=== PATIENT | female | born 1965 ===

== ENCOUNTER 2016-09-04 09:17 | Emergency (ER) | payer MEDICAID ==
[2016-09-04 09:17] VITALS: BMI 36.7
--- NOTE | 2016-09-04 11:09 | RAD ---
PROCEDURE: Radiographs of the Left Shoulder HISTORY: Pain COMPARISON: No prior. FINDINGS: BONES: Bone alignment and mineralization are normal. There is no acute fracture or bone destruction. JOINTS: Normal. Glenohumeral and acromioclavicular joints preserved. No osteoarthritis. SOFT TISSUES: There are discrete multifocal calcifications lateral to the humeral head. OTHER FINDINGS: None. IMPRESSION: Multifocal calcifications lateral to the humeral head could represent calcific tendinitis. No acute fracture or significant degenerative osteoarthrosis.
--- NOTE | 2016-09-04 11:34 | ED PDOC ---
Arrival/HPI - General Chief Complaint: Upper Extremity Problem/Injury Time Seen by Provider: 09/04/16 09:57 Historian: Patient - History of Present Illness Narrative History of Present Illness (Text): 09/04/16 11:52 A 51 year old female presents to the emergency department complaining of left sided shoulder pain for the last 3 weeks. Patient reports no trauma or injury. Patient notes pain is worse with abduction. Patient reports pain is positional. Patient denies chest pain, shortness of breath, dyspnea on exertion or any other complaints at this time. Time/Duration: Other (3 weeks) Symptom Onset: Sudden Symptom Course: Unchanged Activities at Onset: Rest Context: Home Past Medical History - Provider Review Nursing Documentation Reviewed: Yes - Infectious Disease Hx of Infectious Diseases: None - Tetanus Immunization Tetanus Immunization: Unknown - Past Medical History Past Medical History: No Previous - Cardiac Hx Cardiac Disorders: No - Pulmonary Hx Respiratory Disorders: No - Neurological Hx Neurological Disorder: No - HEENT Hx HEENT Disorder: Yes Other/Comment: glasses - Renal Hx Renal Disorder: No - Endocrine/Metabolic Hx Endocrine Disorders: Yes Other/Comment: PRE DIABETIC. - Hematological/Oncological Hx Blood Disorders: No - Integumentary Hx Dermatological Disorder: No - Musculoskeletal/Rheumatological Hx Musculoskeletal Disorders: No - Gastrointestinal Hx Gastrointestinal Disorders: No - Genitourinary/Gynecological Hx Genitourinary Disorders: No - Psychiatric Hx Psychophysiologic Disorder: No Hx Depression: No Hx Emotional Abuse: No Hx Physical Abuse: No Hx Substance Use: No - Surgical History Hx Section: Yes - Anesthesia Hx Anesthesia: Yes Hx Anesthesia Reactions: No - Suicidal Assessment Feels Threatened In Home Enviroment: No Family/Social History - Physician Review Nursing Documentation Reviewed: Yes Family/Social History: No Known Family HX Smoking Status: Never Smoked Hx Alcohol Use: No Hx Substance Use: No Allergies/Home Meds Allergies/Adverse Reactions: Allergies No Known Allergies Allergy (Verified 09/04/16 09:52) Home Medications: Home Meds Medication Instructions Recorded Confirmed Ascorbic Acid [Vitamin C] 1 tab PO DAILY 09/04/16 09/04/16 Ergocalciferol (Vitamin D2) 1 tab PO DAILY 09/04/16 09/04/16 [Vitamin D] Physical Exam - Physical Exam Narrative Physical Exam (Text): 09/04/16 11:41- Review of Systems Constitutional: Normal. absent: Fatigue, Weight Change, Fevers Eyes: Normal ENT: Normal Respiratory: Normal absent: SOB, Cough, Sputum Cardiovascular: Normal absent: Chest pain, Palpitations, Syncope, TELLES Gastrointestinal: Normal absent: Abdominal pain, Diarrhea, Nausea, Vomiting Genitourinary: Normal. absent: Dysuria, Frequency, Hematuria Musculoskeletal: Present: left shoulder pain absent: Back Pain, Neck Pain Skin: Normal Neurological: Normal absent: Focal Weakness Endocrine: Normal Hemo/Lymphatic: Normal Psychiatric: Normal - Physical exam Patient appears age appropriate, speaking full sentences without difficulty - Systems Exam Head: Present: Atraumatic, Normocephalic Pupils: Present: PERRL Extraocular Muscles: Present: EOMI Conjunctiva: Present: Normal Mouth: Present: Moist Mucous Membranes Neck: Present: Normal Range of Motion. No: MIDLINE TENDERNESS, Paraspinal Tenderness Respiratory/Chest: Present: Clear to Auscultation, Good Air Exchange. No: Respiratory Distress, Accessory Muscle Use, Tachypnic Cardiovascular: Present: Regular Rate and Rhythm, Normal S1, S2, Peripheral Pulses Present. No: Murmurs Abdomen: Present: Normal Bowel Sounds, No: Tenderness, Peritoneal Signs, Rebound, Guarding, Distention Back: Present: Normal Inspection. No: Midline Tenderness, Paraspinal Tenderness Upper Extremity: Present: left lateral shoulder tenderness, pain quality reproduced with palpation and ROM testing; elbow, forearm and wrist unremarkable ; distal neurovascular fully intact; 5/5 strength No: Cyanosis, Edema Lower Extremity: Present: Normal Inspection. No: Edema Neurological: Present: GCS=15, Speech Normal, cranial nerves II through XII fully intact with no cerebellar abnormality, neuro-sensory fully intact. No focal neurological deficits. Skin: Present: Warm, Dry, Normal Color. No: Rashes Lymphatic: Present: OX3, NI, NC Psychiatric: Present: Alert, Oriented x 3, Normal Insight, Normal Concentration Vital Signs Reviewed: Yes Vital Signs Temp Pulse Resp BP Pulse Ox 09/04/16 12:15 98.1 F 63 16 116/63 99 Temperature: Afebrile Blood Pressure: Normal Pulse: Regular Respiratory Rate: Normal Appearance: Positive for: Well-Appearing, Non-Toxic, Comfortable Pain Distress: None Mental Status: Positive for: Alert and Oriented X 3 Medical Decision Making ED Course and Treatment: 09/04/16 11:38 Impression: A 51 year old female with left sided shoulder pain. On physical exam, left lateral shoulder tenderness, pain quality reproduced with palpation and ROM testing; elbow, forearm and wrist unremarkable; distal neurovascular fully intact; 5/5 strength. Differential Diagnosis included but are not limited to: calcific tendonitis vs. bursitis Plan: -- Xray shoulder -- Toradol -- Arm Sling -- Reassess and disposition Prior Visits: Notes and results from previous visits were reviewed. Patient last reported to the emergency department on 11/29/13 for evaluation of allergic reaction with urticaria to arms, chest and legs. Progress Notes: shoulder xray- Shoulder xray shows calcified lesions, interpreted by me. Patient reports relief after given Toradol. Sling applied, instructed patient to follow up with orthopedic. Pt states she understands to return to the ER right away for new or worsening symptoms or for inability to f/u with PMD or specialist as instructed. Patient states that she fully agrees with and understands discharge instructions. States that she agrees with the plan and disposition. Verbalized and repeated discharge instructions and plan. I have given the patient opportunity to ask any additional questions. - RAD Interpretation Radiology Orders: 09/04/16 10:02 SHOULDER LEFT [RAD] Stat - Medication Orders Current Medication Orders: Discontinued Medications Ketorolac Tromethamine (Toradol) 30 mg IM STAT STA Stop: 09/04/16 10:03 Last Admin: 09/04/16 10:26 Dose: 30 mg - Scribe Statement The provider has reviewed the documentation as recorded by the Kelsy Esteban Provider Scribe Attestation: All medical record entries made by the Scribe were at my direction and personally dictated by me. I have reviewed the chart and agree that the record accurately reflects my personal performance of the history, physical exam, medical decision making, and the department course for this patient. I have also personally directed, reviewed, and agree with the discharge instructions and disposition. Disposition/Present on Arrival - Present on Arrival Any Indicators Present on Arrival: No History of DVT/PE: No History of Uncontrolled Diabetes: No Urinary Catheter: No History of Decub. Ulcer: No History Surgical Site Infection Following: None - Disposition Have Diagnosis and Disposition been Completed?: Yes Diagnosis: Shoulder pain Disposition: HOME/ ROUTINE Disposition Time: 11:34 Patient Plan: Discharge Condition: GOOD Discharge Instructions (ExitCare): Calcific Tendinitis (ED), Arthralgia (ED), Shoulder Pain (ED) Additional Instructions: PLEASE RETURN TO THE EMERGENCY DEPARTMENT FOR NEW OR WORSENING SYMPTOMS. RETURN RIGHT AWAY IF YOU CANNOT FOLLOW UP WITH YOUR PRIMARY CARE DOCTOR, CLINIC, OR SPECIALIST IN 1-2 DAYS. Prescriptions: Ibuprofen [Motrin] 600 mg PO Q8 PRN #12 tab PRN Reason: Pain, Moderate (4-7) Referrals: Purvi Foreman, [Primary Care Provider] - Follow up with primary William Babin DO [Staff Provider] - Follow up with primary Edison De Luna MD [Staff Provider] - Follow up with primary Forms: WORK NOTE
[2016-09-04 12:16] VITALS: BP 116/63; PULSE 63; RESP 16; TEMP 98.1; O2SAT 99
== END 2016-09-04 12:33 | disposition home or self-care (01) ==
LOC: ED 09:17
DX: M25.512 Pain in left shoulder (principal)
CPT/HCPCS: 73030; 96372; 99284; J1885